=== PATIENT | female | born 1970 | race Caucasian/White ===

== ENCOUNTER → 2017-03-02 | Outpatient (CLI) | payer BC, OTHER | LOC: MC.RAD 15:11 | DX: Z12.31 Encounter for screening mammogram for malignant neoplasm of breast (principal); N63 Unspecified lump in breast ==

== ENCOUNTER → 2018-04-08 | Outpatient (CLI) | payer BC, OTHER | LOC: MC.RAD 13:40 | DX: Z12.31 Encounter for screening mammogram for malignant neoplasm of breast (principal) ==

== ENCOUNTER 2018-09-27 19:21 | Emergency (ER) | payer BC, OTHER ==
[~2018-09-27] VITALS: Ht 160 cm; Wt 90.9 kg
[2018-09-27 19:23] VITALS: TEMP 97.9
[2018-09-27 20:01] LABS: BASO # 0.1 (0.0-0.2); BASO % 0.6 % (0.0-2.0); EOS # 0.1 (0.0-0.7); EOS % 1.2 % (0-4.0); GRAN % 59.9 % (42.2-75.2); HEMATOCRIT 39.6 % (37.0-47.0); HEMOGLOBIN 13.4 g/dl (12.5-16.0); LYMPH # 2.6 (1.2-3.4); LYMPH % 30.8 % (20.0-51.0); MEAN CELL VOLUME 85 fl (80.0-100.0); MEAN CORPUSCULAR HEMOGLOBIN 29 pg (27.0-31.0); MEAN CORPUSCULAR HGB CONC 34 g/dl (33.0-37.0); MEAN PLATELET VOLUME 9.3 fl (7.4-10.4); MONO # 0.6 (0.1-0.6); MONO % 7.1 % (1.7-9.3); PLATELET COUNT 272 K/mm3 (130-400); RED BLOOD COUNT 4.68 M/mm3 (4.10-5.30); REDCELL DISTRIBUTION WIDTH-CV 13.3 % (11.5-14.5)
[2018-09-27] MEDS ORDERED: PROTONIX 40MG T40 MG PO (20:04)
[2018-09-27] MEDS ORDERED: CARAFATE 1GM1 G PO (20:05)
[2018-09-27 20:09] LABS: COLLECTION METHOD CLEAN CATCH
[2018-09-27 20:14] LABS: ALANINE AMINOTRANSFERASE 15 U/L (9-52); ALBUMIN 3.8 gm/dL (3.5-5.0); ALKALINE PHOSPHATASE 70 U/L (50-136); ANION GAP 8 mmol/L (7-16); AST,SGOT 21 U/L (15-37); BILIRUBIN,TOTAL 0.4 mg/dL (0.0-1.0); BLOOD UREA NITROGEN 17 mg/dL (7-17); C-REACTIVE PROTEIN 0.9 mg/dL (0.0-0.9); CALCIUM 9.1 mg/dL (8.4-10.2); CARBON DIOXIDE 23 mmol/L (22-30); CHLORIDE 107 mmol/L (98-107); CREATININE, serum 0.93 mg/dL (0.52-1.25); GLUCOSE 126 mg/dL (74-106); LIPASE 128 U/L (23-300); POTASSIUM 3.8 mmol/L (3.4-5.0); SODIUM 138 mmol/L (137-145); TOTAL PROTEIN 6.9 gm/dL (6.4-8.2)
[2018-09-27 20:15] LABS: MUCOUS Present /lpf; PH 5 (5-8); SQUAMOUS EPITHELIAL 0-2 /hpf; URINE APPEARANCE Clear; URINE BACTERIA None Seen /hpf; URINE BILIRUBIN Negative (NEGATIVE); URINE BLOOD Negative (NEGATIVE); URINE COLOR Yellow; URINE GLUCOSE Negative (NEGATIVE); URINE KETONE Negative (NEGATIVE); URINE LEUKOCYTE ESTERASE Negative (NEGATIVE); URINE NITRATE Negative (NEGATIVE); URINE PROTEIN(semi-quant) Negative (NEGATIVE); URINE UROBILINOGEN Negative (NEGATIVE)
[2018-09-27 20:28] LABS: TROPONIN-I < 0.012 ng/mL (0.000-0.034)
[2018-09-27 22:45] VITALS: BP 129/84; PULSE 79
== END 2018-09-27 22:45 | disposition home or self-care (01) ==
LOC: COL.ER 19:21
PROVIDERS: Emergency Medicine
DX: K80.50 Calculus of bile duct without cholangitis or cholecystitis without obstruction (principal); E27.9 Disorder of adrenal gland, unspecified; Z87.442 Personal history of urinary calculi
CPT/HCPCS: J1885; J2405; J7030; Q9967

== ENCOUNTER → 2018-09-27 | Outpatient (CLI) | payer BC, OTHER ==
[~2018-09-27] MED LIST: CARAFATE 1GM1 G PO; PROTONIX 40MG T40 MG PO
== END ==
LOC: COL.RAD 08:11
DX: K21.0 Gastro-esophageal reflux disease with esophagitis (principal)

== ENCOUNTER → 2018-09-30 | Outpatient (CLI) | payer BC, OTHER | LOC: COL.RAD 09:59 | DX: R10.9 Unspecified abdominal pain (principal); R11.0 Nausea | CPT/HCPCS: A9537 ==

== ENCOUNTER 2018-10-20 14:33 | Day surgery (SDC) | payer BC, OTHER ==
[~2018-10-20] VITALS: Ht 160 cm; Wt 94.5 kg
[2018-10-20 15:23] VITALS: BP 132/96; PULSE 92; TEMP 98.3
[2018-10-20 17:15] VITALS: BP 132/88; PULSE 89; TEMP 97.8
--- NOTE | 2018-10-20 17:15 | NUR ---
Pt to [facility] via cart from [employer]. Pt drowsy, but awake. Denies pain or nausea. Pt ambulates to recliner with stand by assistance. Warm blanket given. Sister inlaw in room. Muffin and juice given per request. Will continue to monitor. Call light within reach.
[2018-10-20 17:30] VITALS: BP 126/92; PULSE 91
--- NOTE | 2018-10-20 17:30 | NUR ---
Discharge instructions reviewed. Pt voices understanding. IV site discontinued with all parts intact. Pt up to dress. Call light within reach.
--- NOTE | 2018-10-20 17:45 | NUR ---
Pt escorted to private car via wheel chair. Pt accompanied home by her sister in law.
== END 2018-10-20 17:45 | disposition home or self-care (01) ==
LOC: SDCO 14:33
DX: K21.0 Gastro-esophageal reflux disease with esophagitis (principal); E66.9 Obesity, unspecified; Z68.37 Body mass index [BMI] 37.0-37.9, adult
CPT/HCPCS: J2250; J3010; J7030

== ENCOUNTER → 2019-08-22 | Outpatient (CLI) | payer BC, OTHER | LOC: MC.RAD 14:14 | DX: Z12.31 Encounter for screening mammogram for malignant neoplasm of breast (principal) ==